=== PATIENT | female | born 1990 | race Caucasian/White ===

== ENCOUNTER 2018-03-25 13:16 | Emergency (ER) | payer SELFPAY ==
[2018-03-25 13:17] VITALS: BP 138/81; PULSE 102; RESP 16; TEMP 36.8; O2SAT 99
--- NOTE | 2018-03-25 13:27 | ED.GENADUL_ITS ---
Discharge Plan Disposition Patient Disposition: HOME Condition: Stable Discharge Details Chief Complaint: Abd Prob Clinical Impression: Epigastric abdominal pain, Vomiting Primary Care Provider: None,None ED Provider: Terra Tavarez Home Meds and New Rx's Prescriptions: New ondansetron HCl [Zofran] 4 mg tablet 4 mg PO TID PRN (Reason: nausea and vomiting) Qty: 6 RF: 0 famotidine [Pepcid] 20 mg tablet 20 mg PO DAILY Qty: 14 RF: 0 Continued ibuprofen 600 MG tablet 600 mg PO Q6H PRN RF: 0 Discharge Instructions Instructions: Acute Nausea and Vomiting (ED), Epigastric Pain (ED) Additional Instructions: Take the Zofran as needed and directed for any nausea or vomiting. Take the Pepcid daily as directed. Drink plenty of fluids and get plenty of rest. Follow a bland diet for the next 2 days including bananas, rice, toast, crackers, pretzels. Follow-up with a primary care doctor in 1 week for reevaluation. Return to the emergency department any worsening or new concerning symptoms. Discharge Data Discharge Date/Time-TO BE ENTERED AT DEPARTURE: 03/25/18 16:05 Discharge Physician: Terra Tavarez Medical Decision Making 27-year-old female presents with intermittent stabbing epigastric pain and vomiting for the past 2 days after eating out at a restaurant. No fever or vomiting. Heart rate mildly tachycardic, otherwise vitals within normal limits. Afebrile. Patient is tearful due to pain but otherwise in no acute distress. Her abdomen is soft and has tenderness mostly in the right lower quadrant, but also in the epigastric and right upper quadrant. No rigidity or guarding. Negative psoas sign, obturator sign and heel jar sign. Differential diagnosis includes gastroenteritis, gastritis, appendicitis, cholecystitis. Will place an IV, bolus IV fluids, Toradol, Zofran, labs and CT imaging. 1445 -- labs and imaging reviewed and unremarkable. Normal white blood cell count, electrolytes, lipase. Urinalysis notes findings consistent with dehydration but no evidence of infection. CT notes an incidental left ovarian cyst but I do not suspect this is the cause of her pain. She admits to return of pain. Will give a dose of Pepcid and GI cocktail and reassess. 1515 -- pt feels better and was able to take sips of water and no further vomiting. Pt feels good to go home. Will send home with prescription for Zofran and Pepcid and 2 tabs of Zofran for home. Patient instructed to follow a bland diet for the next 2 days, drink plenty of fluids, follow-up with primary care doctor return here at any time if worse. Medical Records Medical records reviewed: Yes I reviewed the patient's medical records. Imaging Data Radiologic Study: Radiologist's impression: CT Abdomen and Pelvis With Contrast FINDINGS: Lower thorax: No acute findings. ABDOMEN: Liver: Normal. No mass. Gallbladder and bile ducts: Normal. No calcified stones. No ductal dilation. Pancreas: Normal. No ductal dilation. Spleen: Normal. No splenomegaly. Adrenals: Normal. No mass. Kidneys and ureters: Normal. No hydronephrosis. Stomach and bowel: Normal. No obstruction. No mucosal thickening. Appendix: Normal appendix. PELVIS: Bladder: Unremarkable as visualized. Reproductive: Involuting left ovarian cyst measuring approximately 3.5 cm. ABDOMEN and PELVIS: Intraperitoneal space: Small amount of free fluid in the cul-de-sac. No free air. Bones/joints: No acute fracture. No dislocation. Soft tissues: Unremarkable. Vasculature: Normal. No abdominal aortic aneurysm. Lymph nodes: Normal. No enlarged lymph nodes. IMPRESSION: 1. Involuting left ovarian cyst measuring 3.5 cm. 2. Small fluid in the cul-de-sac. Lab Data Lab results reviewed: Yes I reviewed the patient's lab results. Laboratory Tests Range/Units 03/25/18 03/25/18 03/25/18 13:42 13:42 13:46 WBC (4.4-10.8) k/cumm 10.68 RBC (4.00-5.20) m/cumm 5.19 Hgb (12.0-15.5) g/dL 16.5 H Hct (36.0-46.0) % 46.9 H MCV (80-95) fL 90.4 MCH (27.0-33.0) pg 31.8 MCHC (32.0-36.0) g/dL 35.2 RDW (11.7-14.6) % 12.3 Plt Count (130-400) x1000/uL 203 MPV (8.0-11.0) fL 9.5 Immature Gran % 0.2 Neutrophils % 75.1 Lymphocytes % 12.5 Monocytes % 11.2 Eosinophils % 0.8 Basophils % 0.2 Absolute Neutrophils (1.2-6.7) k/cumm 8.01 H Absolute Lymphocytes (1.2-3.4) k/cumm 1.34 Absolute Monocytes (0.11-0.7) k/cumm 1.20 H Absolute Eosinophils (0.0-0.7) k/cumm 0.09 Absolute Basophils (0.0-0.2) k/cumm 0.02 Sodium (136-145) mmol/L 143 Potassium (3.5-5.1) mmol/L 3.5 Chloride (98-107) mmol/L 100 Carbon Dioxide (21.0-32.0) mmol/L 31.5 Anion Gap (3-11) mmol/L 11.5 H BUN (7-18) mg/dL 18 Creatinine (0.55-1.02) mg/dL 0.90 Estimated GFR/1.73 m2 (mL/min/1.73m2) >= 60.00 Glucose (70-100) mg/dL 92 Calcium (8.5-10.1) mg/dL 10.1 Total Bilirubin (0.2-1.0) mg/dL 0.5 AST (15-37) U/L 18 ALT (12-78) U/L 24 Alkaline Phosphatase (46-116) U/L 64 Total Protein (6.4-8.2) g/dL 8.4 H Albumin (3.4-5.0) g/dL 4.5 Lipase (73-393) U/L 93 Urine Color (Yellow) Yellow Urine Clarity Cloudy Urine pH (5-8) >= 9.0 H Ur Specific Goessel (1.005-1.025) 1.015 Urine Protein (Negative) mg/dL 100 H Urine Ketones (Negative) mg/dL >=160 H Urine Blood (Negative) Negative Urine Nitrite (Negative) Negative Urine Bilirubin (Negative) Moderate H Urine Urobilinogen (Up TO 0.2) EU/dL 2.0 H Ur Leukocyte Esterase (Negative) Negative Urine RBC Not Applicable Urine WBC Not Applicable Ur Epithelial Cells (Negative) HPF Many Urine Crystals Not Applicable Urine Bacteria Not Applicable Urine Mucus Not Applicable Ur Culture Indicated? No/sq. contamination Urine Glucose (Negative) mg/dL Negative test negative HPI General Mode of arrival: ambulatory . Date/Time Provider Initiated Documentation: 03/25/18 13:26 . Limitations to Documentation: no limitations . Information obtained by: patient . HPI Narrative: Patient is a 27-year-old female who presents with complaint of I have food poisoning . Patient states she ate a burger, fries and cottage cheese 2 days ago at a restaurant and she has been vomiting with abdominal pain since then. Patient states she has vomited approximately 12 times. Last episode of vomiting was just here in the parking lot. Patient states her abdominal pain is intermittent, stabbing, epigastric with radiation up to her chest. She denies any nausea at present. She denies fever, shortness of breath, diarrhea, urinary symptoms, recent travel, recent antibiotics. She states another friend who was at the restaurant ate seafood and also had vomiting but is now better. Patient states her pain is currently 9/10. Related Data Home Medications Medication Instructions Recorded Confirmed ibuprofen 600 mg PO Q6H PRN tab-cap 02/15/17 famotidine [Pepcid] 20 mg PO DAILY #14 tab 03/25/18 ondansetron HCl [Zofran] 4 mg PO TID PRN #6 tab 03/25/18 Previous Rx's Medication Instructions Recorded famotidine [Pepcid] 20 mg PO DAILY #14 tab 03/25/18 ondansetron HCl [Zofran] 4 mg PO TID PRN #6 tab 03/25/18 Allergies Allergy/AdvReac Type Severity Reaction Status Date / Time No Known Drug Allergies Allergy Unverified 03/25/18 13:24 General Stated Complaint: Abd Prob CAROL: 3 Review of Systems Review of Systems All systems reviewed & are unremarkable except as noted in HPI and below Constitutional Reports as per HPI, Denies chills and Denies fever(s) Eyes Denies blurry vision ENT Denies dizziness, Denies sore throat and Denies throat swelling Cardiovascular Denies chest pain and Denies dyspnea Respiratory Denies dyspnea Gastrointestinal Reports abdominal pain, Denies diarrhea and Reports vomiting Genitourinary Denies hematuria and Denies dysuria Musculoskeletal Denies back pain and Denies numbness Integumentary/Breasts Denies lesions and Denies rash Neurologic Denies dizziness and Denies numbness Allergic/Immunologic Denies throat swelling [facility] Medical History Childhood asthma History of depression Seasonal allergic rhinitis Family History Other Heart disease Mental disorder Social History Smoking/Tobacco Use Status: Current every day alcohol intake: never substance use type: does not use Exam Const General: cooperative, healthy appearing and no acute distress HENMT Head: normal to inspection Mouth: oral mucosae normal Eyes General: appearance normal, both eyes and all related structures Neck Neck: normal visual inspection Chest Chest: normal inspection of the chest and tenderness pectoral muscle on the left Resp Effort & Inspection: normal respiratory effort and able to speak in complete sentences Auscultation: clear to auscultation bilaterally Cardio Rate: regular rate Rhythm: regular rhythm GI Inspection: normal to inspection Palpation: soft, not firm, not rigid and tender in the epigastrum, in the RLQ and in the RUQ Auscultation: normal bowel sounds Other: Negative heel jar sign. Negative psoas sign. Negative obturator sign. Skin General skin exam: no rashes or lesions noted Neuro General: alert, awake and oriented x3 Motor: muscle tone normal throughout Extrem General: normal to inspection and full ROM Psych Appearance: grossly normal Affect: normal affect Course Vital Signs Temperature 98.2 F 03/25/18 13:17 Pulse 102 H 03/25/18 13:17 Respiratory Rate 16 03/25/18 13:17 Blood Pressure 138/81 03/25/18 13:17 Pulse Oximetry 99 03/25/18 13:17 Temperature 98.2 F 03/25/18 13:17 Temperature Source Temporal Artery Scan 03/25/18 13:17 Pulse 102 H 03/25/18 13:17 Respiratory Rate 16 03/25/18 13:17 Blood Pressure 138/81 03/25/18 13:17 Blood Pressure Position Sitting 03/25/18 13:17 Pulse Oximetry 99 03/25/18 13:17 Oxygen Delivery Method Room Air 03/25/18 13:17 Oxygen Flow Rate 0 03/25/18 13:17 Pain Level 9 03/25/18 13:17
--- NOTE | 2018-03-25 13:36 | DI.CT_ITS ---
SYMPTOM/DIAGNOSIS: RLQ AND EPIGASTRIC PAIN, ? APPENDICITIS OR CHOLECYSTITIS ABDOMEN AND PELVIC CT: CT scan of the abdomen and pelvis was performed following the uneventful administration of intravenous contrast material. There are no priors for comparison. The visualized lung bases are clear. No hepatic mass is seen. The portal, superior mesenteric and splenic veins are patent. The gallbladder is negative. No biliary ductal dilatation is seen. The pancreas, spleen and adrenal glands are unremarkable. The kidneys show normal and symmetric enhancement. No solid renal mass or obstruction is seen. The urinary bladder is intact. The reproductive organs show an involuting cyst on the left ovary measuring 3.5 cm. There is a small amount of fluid in the pelvis which is likely physiologic. The abdominal aorta is of normal caliber. No significant abdominal or pelvic adenopathy or pneumoperitoneum is seen. The bowel is unremarkable. There is a normal appendix present. The bones are intact. IMPRESSION: 1. 3.5 cm. involuting left ovarian cyst. 2. Small amount of fluid in the pelvis which is likely physiologic.
[2018-03-25 13:50] LABS: Abs Immature Grans 0.02 k/cumm (0.0-0.09); Absolute Basophil Count 0.02 k/cumm (0.0-0.2); Absolute Eosinophil Count 0.09 k/cumm (0.0-0.7); Absolute Lymphocyte Count 1.34 k/cumm (1.2-3.4); Absolute Neutrophil Count 8.01 k/cumm (1.2-6.7); Basophils % 0.2; Eosinophils % 0.8; HCT 46.9 % (36.0-46.0); HGB 16.5 g/dL (12.0-15.5); Immature Grans % 0.2; Lymphocytes % 12.5; Mean Corp. HGB Concentration 35.2 g/dL (32.0-36.0); Mean Corpuscular Hemoglobin 31.8 pg (27.0-33.0); Mean Corpuscular Volume 90.4 fL (80-95); Mean Platelet Volume 9.5 fL (8.0-11.0); Monocytes % 11.2; Neutrophils % 75.1; Platelet Count 203 x1000/uL (130-400); RBC 5.19 m/cumm (4.00-5.20); RBC Distribution Width 12.3 % (11.7-14.6); White Blood Cell Count 10.68 k/cumm (4.4-10.8)
[2018-03-25] MEDS: Ketorolac 30 MG/ML VIAL IVP (13:52)
[2018-03-25] MEDS: Ondansetron 4 MG/2 ML VIAL IVP (13:52)
[2018-03-25] MEDS: Normal Saline 1,000 ML 1000 ML IV (13:57)
[2018-03-25 14:00] LABS: Bilirubin Moderate (Negative); Blood Negative (Negative); Glucose Negative (Negative); Ketones >=160 mg/dL (Negative); Leukocyte Esterase Negative (Negative); Nitrite Negative (Negative); Specific Gravity 1.015 (1.005-1.025); pH >= 9.0 (5-8)
[2018-03-25 14:02] LABS: Clarity Cloudy
[2018-03-25 14:08] LABS: ALT 24 U/L (12-78); AST 18 U/L (15-37); Albumin 4.5 g/dL (3.4-5.0); Alkaline Phosphatase 64 U/L (46-116); Anion Gap 11.5 mmol/L (3-11); BUN 18 mg/dL (7-18); Bilirubin, Total 0.5 mg/dL (0.2-1.0); CO2 31.5 mmol/L (21.0-32.0); Calcium 10.1 mg/dL (8.5-10.1); Chloride 100 mmol/L (98-107); Glucose 92 mg/dL (70-100); Lipase 93 U/L (73-393); Potassium 3.5 mmol/L (3.5-5.1); Sodium 143 mmol/L (136-145); Total Protein 8.4 g/dL (6.4-8.2)
[2018-03-25 14:08] LABS: Epithelial Cells Many HPF (Negative)
[2018-03-25 14:09] LABS: C & S Indicated? No/Sq. Contamination
[2018-03-25] MEDS: Omnipaque 350 MG/ML 100 ML BTL IJ (14:12)
--- NOTE | 2018-03-25 14:51 | DI.VRAD_ITS ---
EXAM: CT Abdomen and Pelvis With Contrast EXAM DATE/TIME: 03/25/2018 1:39 PM CLINICAL HISTORY: 27 years old, female; Pain and signs and symptoms; Abdominal tenderness and nausea; Abdominal pain; Other: Rlq, epigastric TECHNIQUE: Axial computed tomography images of the abdomen and pelvis with intravenous contrast. All CT scans at this facility use at least one of these dose optimization techniques: automated exposure control; mA and/or kV adjustment per patient size (includes targeted exams where dose is matched to clinical indication); or iterative reconstruction. Coronal and sagittal reformatted images were created and reviewed. CONTRAST: 100 ml of omnipauqe 350 administered intravenously. COMPARISON: No relevant prior studies available. FINDINGS: Lower thorax: No acute findings. ABDOMEN: Liver: Normal. No mass. Gallbladder and bile ducts: Normal. No calcified stones. No ductal dilation. Pancreas: Normal. No ductal dilation. Spleen: Normal. No splenomegaly. Adrenals: Normal. No mass. Kidneys and ureters: Normal. No hydronephrosis. Stomach and bowel: Normal. No obstruction. No mucosal thickening. Appendix: Normal appendix. PELVIS: Bladder: Unremarkable as visualized. Reproductive: Involuting left ovarian cyst measuring approximately 3.5 cm. ABDOMEN and PELVIS: Intraperitoneal space: Small amount of free fluid in the cul-de-sac. No free air. Bones/joints: No acute fracture. No dislocation. Soft tissues: Unremarkable. Vasculature: Normal. No abdominal aortic aneurysm. Lymph nodes: Normal. No enlarged lymph nodes. IMPRESSION: 1. Involuting left ovarian cyst measuring 3.5 cm. 2. Small fluid in the cul-de-sac. Dictated and Authenticated by: Eduard Navarrete MD. Ordering:ALJEANDRO Ellison MD
[2018-03-25] MEDS: Famotidine 20 MG TAB PO (15:00)
[2018-03-25] MEDS: Ondansetron O.D.T. 4 MG TABEF PO (15:09)
[2018-03-25 15:11] VITALS: BP 124/67; PULSE 67; TEMP 36.6; O2SAT 16
[2018-03-25] MEDS: Ondansetron O.D.T. 4 MG TABEF (15:45)
== END 2018-03-25 16:05 | disposition home or self-care (01) ==
PROVIDERS: Emergency Provider Physician Assistant
DX: R10.13 Epigastric pain (principal); R11.2 Nausea with vomiting, unspecified
CPT/HCPCS: 36415; 80053; 83690; 96361; 96374; 96375; 99285; 74177; 81003; 81015; 85025; J1885; J2405; J3490